=== PATIENT | male | born 1965 | race Caucasian/White ===

== ENCOUNTER → 2018-01-21 17:16 | Emergency (ER) | payer OTHER ==
[~2018-01-21 17:16] MED LIST: NS 0.9% 1000 ML* 2,000 ML IV ONE
--- NOTE | 2018-01-21 17:57 | ED ---
Syncope/Near Syncope - HPI Summary HPI Summary: Pt is a 52 year old M presenting to the ED with a chief complaint of dizziness. The pt was in [employer] and was walking around the store and started feeling dizzy. He said it was almost like his eyes were like a camera taking pictures. He started sweating like a pig, his head leaned back and got stuck there, and he said his vision was gone. He said he could feel and hear everything but he couldnt see anything. He was nauseous, his lips were numb, like he was about to pass out. He got his eyesight back, but he was still dizzy, lips were still numb, and he was in cold sweats. After he checked out he sat in his truck for a while until he felt better. During this whole episode, he had no pain, he just felt like his neck was stuck. Presently, his neck is very sore. He ate fine today and walked around normally. No DM, HTN. Appendectomy, gastric bypass, cholecystectomy. Pt comments that he's been having trouble eating because he feels like food gets stuck, and that he's been taking lots of tylenol due to his toothache. - History Of Current Complaint Chief Complaint: EDDizziness Time Seen by Provider: 01/21/18 17:25 Hx Obtained From: Patient Onset/Duration: Sudden Onset, Lasting Hours, Resolved Timing: Intermittent Episode Lasting Context: Other - in store, no LOC Activity At Onset: Exertion - walking in [employer] Associated Head Trauma: No Aggravating Factor(s): Nothing Alleviating Factor(s): Spontaneous Resolution Associated Signs And Symptoms: Diaphoresis, Dizzy, Lightheadedness, Numbness - in lips, Weakness - Allergies/Home Medications Allergies/Adverse Reactions: Allergies Allergy/AdvReac Type Severity Reaction Status Date / Time No Known Allergies Allergy Verified 01/21/18 17:24 Home Medications: Home Medications NK [No Home Medications Reported] 01/21/18 [History Confirmed 01/21/18] PMH/Surg Hx/FS Hx/Imm Hx Endocrine/Hematology History: Denies: Hx Diabetes Cardiovascular History: Denies: Hx Hypertension Neurological History: Reports: Other Neuro Impairments/Disorders - hx syncope - Surgical History Surgery Procedure, Year, and Place: appendectomy, cholecystectomy, gastric bypass Infectious Disease History: No Infectious Disease History: Denies: Traveled Outside the [place] in Last 30 Days - Family History Known Family History: Positive: Diabetes - mother Negative: Hypertension - Social History Alcohol Use: None Substance Use Type: Reports: None Smoking Status (MU): Never Smoked Tobacco Review of Systems Positive: Chills, Skin Diaphoresis Positive: Other - "blacked out" - lost eyesight Negative: Chest Pain Positive: Nausea. Negative: Abdominal Pain Positive: Arthralgia - neck stiffness Positive: Weakness, Numbness - in lips, Syncope - near syncope All Other Systems Reviewed And Are Negative: Yes Physical Exam - Summary Physical Exam Summary: Appearance: Well-appearing, Well-nourished, lying in bed comfortably Skin: Warm, dry, no obvious rash Eyes: sclera anicteric, no conjunctival pallor ENT: mucous membranes moist, pharynx appears normal Neck: Supple, nontender Respiratory: Clear to auscultation, no signs of respiratory distress Cardiovascular: Normal S1, S2. No murmurs. Normal distal pulses in tibial and radial bilaterally. Abdomen: Soft, nontender, normal active bowel sounds present Musculoskeletal: Normal, Strength/ROM Intact Neurological: A&Ox3, awake and alert, mentation is normal, speech is fluent and appropriate Psychiatric: affect is normal, does not appear anxious or depressed Triage Information Reviewed: Yes Vital Signs On Initial Exam: Initial Vitals Temp Pulse Resp BP Pulse Ox 96.9 F 89 20 165/82 100 01/21/18 17:17 01/21/18 17:17 01/21/18 17:17 01/21/18 17:17 01/21/18 17:17 Vital Signs Reviewed: Yes Diagnostics - Vital Signs Vital Signs Temp Pulse Resp BP Pulse Ox 01/21/18 17:17 96.9 F 89 20 165/82 100 - Laboratory Result Diagrams: 01/21/18 18:05 01/21/18 18:05 Lab Statement: Any lab studies that have been ordered have been reviewed, and results considered in the medical decision making process. - EKG 1826 Cardiac Rate: NL - 85 bpm EKG Rhythm: Sinus Rhythm ST Segment: Normal Ectopy: PACs Course/Dx Course Of Treatment: Pt is a 52 y/o M presenting to the ED due to near syncope. He was in [employer] and started to lose eyesight, his head went back and felt stuck, and he was in cold sweats. The pt recovered a bit, checked out, and recovered in his car. The pt reports he has been having trouble eating and has taken lots of tylenol lately for a toothache. Discharge - Sign-Out/Discharge Documenting (check all that apply): Sign-Out Patient Signing out patient TO: Monse Arana - Discharge Plan Condition: Stable Referrals: No Primary Care Phys,NOPCP [Primary Care Provider] - - Attestation Statements Document Initiated by Scribe: Yes Documenting Scribe: Bev Lozano Provider For Whom [employer] is Documenting (Include Credential): Amos Daniel MD. Scribe Attestation: Bev Lee, scribed for Amos Daniel MD. on 01/21/18 at 1853.
[2018-01-21 18:12] LABS: ABS Basophils 0.1 10^3/ul (0-0.2); ABS Eosinophils 0.1 10^3/ul (0-0.6); ABS Lymphocytes 1.4 10^3/ul (1.0-4.8); ABS Monocytes 0.8 10^3/ul (0-0.8); ABS Neutrophils 5.4 10^3/ul (1.5-7.7); ABS Nucleated RBC 0 10^3/ul; Eosinophil % 1.6 % (0-6); Hematocrit 43 % (42-52); Hemoglobin 14.6 g/dl (14.0-18.0); Lymphocyte % 17.9 % (25-47); Mean Corpuscular HGB Conc 34 g/dl (31-36); Mean Corpuscular Hemoglobin 32 pg (27-31); Mean Corpuscular Volume 93 fL (80-94); Nucleated Red Blood Cells % 0.1; Platelet Count 251 10^3/ul (150-450); Red Blood Count 4.61 10^6/ul (4.00-5.40); Red Cell Distribution Width 14 % (10.5-15); White Blood Count 7.9 10^3/ul (3.5-10.8)
[2018-01-21 18:35] LABS: EGFR Non-African American 83.6 (>60)
[2018-01-21 18:37] LABS: Urine Appearance Cloudy; Urine Blood Negative (Negative); Urine Color Yellow; Urine Ketones Negative (Negative); Urine Protein Negative (Negative); Urine Specific Gravity 1.021 (1.010-1.030); Urine Urobilinogen Positive (Negative)
[2018-01-21 19:32] VITALS: BP 136/81
== END | disposition home or self-care (01) ==
LOC: ED 17:16
DX: R55 Syncope and collapse (principal); R42 Dizziness and giddiness; R11.0 Nausea; R53.1 Weakness
CPT/HCPCS: 36415; 80053; 81003; 83605; 83735; 84443; 84484; 85025; 93005; 96360; 99283